=== PATIENT | male | born 1960 | race Caucasian/White ===

== ENCOUNTER → 2017-11-10 | Outpatient (CLI) | payer BC ==
--- NOTE | 2017-11-10 12:17 | CT ---
EXAM DESCRIPTION: Abdoment/Pelvis w/o Contrast CLINICAL HISTORY: 57 years, Male, URINARY CALCULUS COMPARISON: None. TECHNIQUE: CT of the abdomen and pelvis is performed according to our non contrast protocol. FINDINGS: The lung bases are clear. Heart is prominent. No pericardial effusion. Liver, spleen, and pancreas are unremarkable. Adrenal glands appear normal. Question single small rim calcified stone in the gallbladder. Right kidney appears hydronephrotic with mild strandy edematous changes surrounding the kidney. There is mild prominence of the mid and distal ureteral caliber to the level of the ureterovesical junction. A small calculus protrudes into the bladder lumen from the right ureterovesical junction which is very small measuring approximately 2 mm. The left kidney is unremarkable. No renal stones or hydronephrosis. Small bowel loops appear normal in caliber with normal wall thickness. There is no lymphadenopathy, inflammation, or free fluid observed. In the pelvis, the appendix is normal. No inflammation around the cecum or terminal ileum or sigmoid colon. No stones in the distal left ureter. Rectal wall thickness is normal for degree of distention. No free fluid or mass in the pelvis. Prostate appears normal in size with coarse internal calcification. No inguinal or lower pelvic adenopathy. Coronal and sagittal reformatted images confirm the findings. IMPRESSION: Mild right hydroureteronephrosis with 2 mm calculus at the right ureterovesical junction. This exam was performed according to our departmental dose-optimization program, which includes automated exposure control, adjustment of the mA and/or kV according to patient size and/or use of iterative reconstruction technique. Total DLP equals 1589.49 mGycm. Electronically signed by: Camden Cornejo MD 11/10/2017 12:15 PM CDT
== END ==
LOC: CT 11:38
PROVIDERS: ATTEND Family Medicine
DX: N13.2 Hydronephrosis with renal and ureteral calculous obstruction (principal)

== ENCOUNTER → 2017-11-13 | Outpatient (CLI) | payer BC | LOC: GMAH 10:52 | PROVIDERS: ATTEND Family Medicine | DX: N20.0 Calculus of kidney (principal) ==